=== PATIENT | female | born 1955 | race Caucasian/White ===

== ENCOUNTER → 2018-07-27 | Outpatient (CLI) | payer BC | END | disposition home or self-care (01) | LOC: MAMO-SONO 10:15 → SONOGRAMA 10:32 | DX: M25.511 Pain in right shoulder (principal) ==

== ENCOUNTER 2024-08-16 12:46 | Emergency (ER) | payer OTHER ==
[~2024-08-16] VITALS: Ht 157.5 cm; Wt 77.1 kg
[2024-08-16] MEDS ORDERED: TRAZODONE HCL150 MG PO (13:05)
[2024-08-16] MEDS ORDERED: ORPHENADRINE CITRATE 30 MG/ML AMPUL IM ONE (15:15)
[2024-08-16] MEDS ORDERED: ORPHENADRINE CITRATE 30 MG/ML AMPUL ONE (15:48)
[2024-08-16] MEDS ORDERED: NORFLEX100MG PO (16:01)
== END 2024-08-16 16:41 | disposition home or self-care (01) ==
LOC: ER
DX: M62.830 Muscle spasm of back (principal); V43.62XA Car passenger injured in collision with other type car in traffic accident, initial encounter; Y93.89 Activity, other specified; Y92.413 State road as the place of occurrence of the external cause; Z85.3 Personal history of malignant neoplasm of breast